=== PATIENT | male | born 1965 | race Caucasian/White ===

== ENCOUNTER 2020-03-31 23:56 | Emergency (ER) | payer OTHER, SELFPAY ==
[2020-04-01 00:01] VITALS: BP 164/103; PULSE 107; RESP 18; TEMP 36.1; O2SAT 100
--- NOTE | 2020-04-01 00:30 | ED.GENADULT ---
HPI - General Adult General Chief complaint: Extremity Injury, Upper Stated complaint: finger lac Time Seen by Provider: 03/31/20 23:58 Source: RN notes reviewed History of Present Illness HPI narrative: Patient presents to emergency department from home for finger laceration. Patient states that approximately 2 hours ago he was stripping some wire with a knife when he cut his left palmar aspect of his fifth digit. He states that he initially tried to wrap it with bandages intact to but continued bleeding emergency department for further evaluation patient states he is on Plavix he denies any other trauma or injury he states he did injure that finger approximately 20 years ago and since that time has been able to flex his left fifth finger in any way and is always held out right he is unsure of his last tetanus shot Related Data Home Medications Medication Instructions Recorded Confirmed atorvastatin 04/01/20 blood sugar diagnostic [OneTouch 04/01/20 04/01/20 Ultra Blue Test Strip] clopidogrel 04/01/20 fluoxetine mg 04/01/20 fluoxetine mg 04/01/20 insulin glargine [Lantus Solostar SUBCUT 04/01/20 U-100 Insulin] liraglutide [Victoza 3-Sabas] mg SUBCUT 04/01/20 lisinopril 04/01/20 metformin mg 04/01/20 nicotine 04/01/20 pen needle, diabetic [BD 04/01/20 04/01/20 Ultra-Fine Short Pen Needle] tamsulosin mg PO 04/01/20 Allergies Allergy/AdvReac Type Severity Reaction Status Date / Time Penicillins Allergy Unknown Rash Verified 04/01/20 00:04 Review of Systems Review of Systems: Narrative: Gen.: Denies fevers or chills Musculoskeletal: Reports finger pain Neuro: Denies numbness, tingling, weakness Skin: See HPI Endo: Reports diabetes mellitus [facility] Past Medical History Medical History (Updated 04/01/20 @ 00:37 by Rony Dewitt DO) CVA (cerebral vascular accident) Diabetes mellitus Social History Social History (Updated 04/01/20 @ 00:33 by Rony Dewitt DO) Smoking status: Never smoker Gender identity (if verbalized by the patient): Male Sexual Orientation (if Verbalized by the Patient): Straight or Heterosexual Exam Narrative: Exam Narrative: APPEARANCE: No acute distress, nontoxic, resting in bed Eyes: EOMI HEENT: Normocephalic, atraumatic, RESPIRATORY: No respiratory distress MUSCULOSKELETAl: Left fifth finger with no flexion at the PIP DIP with minimal flexion at the MCP full extension of PIP DIP and MCP, capillary refill less than 3 seconds remainder the fingers normal appearance NEURO: Awake and alert. Following commands, speech normal, no focal deficits SKIN:: Warm, dry. Normal 2.5 cm laceration over the palmar aspect of the left fifth digit between the PIP and DIP joint that is linear and deep with moderate venous bleeding no foreign bodies and no tendon verbal consent was obtained prior to the procedure. The wound was cleaned with Betadine and irrigated with copious amounts of normal saline. Lidocaine 1% with epinephrine was used for anesthesia. Wound was explored is no foreign body seen. The wound was then closed with [2] []-0 nylon in simple interrupted fashion. A sterile dressing was applied following the procedure. Patient tolerated the procedure well Course Course Emergency Course: Discussed with patient results of workup and diagnosis. Discussed need for follow-up with primary care, proper use of medication, and reasons to return to the emergency department. Patient understands and agrees to current treatment plan Vital Signs Vital signs: Vital Signs Temperature 97 F L 04/01/20 00:01 Pulse Rate 107 H 04/01/20 00:01 Respiratory Rate 18 04/01/20 00:01 Blood Pressure 164/103 H 04/01/20 00:01 Pulse Oximetry 100 04/01/20 00:01 Temperature 97 F L 04/01/20 00:01 Pulse Rate 107 H 04/01/20 00:01 Respiratory Rate 18 04/01/20 00:01 Blood Pressure 164/103 H 04/01/20 00:01 Pulse Oximetry 100 04/01/20 00:01 Procedures Laceration Lacera
[2020-04-01] MEDS: TETANUS,DIPHTHERIA,AC PERTUSSIS ADULT (0.5 ML) BOOSTRIX IM (00:40)
[2020-04-01 00:45] VITALS: BP 155/96; PULSE 85; RESP 16; TEMP 36.3; O2SAT 97
== END 2020-04-01 00:45 | disposition home or self-care (01) ==
PROVIDERS: Emergency Provider Emergency Medicine
DX: S61.217A Laceration without foreign body of left little finger without damage to nail, initial encounter (principal); E11.9 Type 2 diabetes mellitus without complications; Z79.4 Long term (current) use of insulin; W26.0XXA Contact with knife, initial encounter; Z23 Encounter for immunization
CPT/HCPCS: 12001; 90471; 90715; 99282